=== PATIENT | female | born 1995 | race Hispanic/Latino ===

== ENCOUNTER 2022-09-12 18:44 | Emergency (ER) | payer OTHER ==
[~2022-09-12 18:44] MED LIST: Iopamidol-370 76% 500 ML MDV (1 ML CHARGE) ONE
[2022-09-12] MEDS ORDERED: Dexameth. Sod Phosp. 10 MG/ML (CHEMO USE ONLY) ONE ×2 (19:50→19:56)
[2022-09-12] MEDS ORDERED: Ketorolac Tromethamine 30 MG/ML VIAL ONE ×2 (19:50→19:56)
[2022-09-12 20:42] LABS: Hemoglobin 15.1 g/dL (12.0-16.0); Manual Diff?? YES; Mean Corpuscular HGB CONC 34.5 g/dL (32.0-36.0); Mean Corpuscular Hemoglobin 29.4 pg (27.0-31.0); Mean Corpuscular Volume 85.4 fl (78.0-98.0); Mean Platelet Volume 8.5 fL (7.4-10.4); Platelet Count 241 10x3/uL (130-400); RBC Distribution Width 14.7 % (11.5-14.5); Red Blood Cell (RBC) Count 5.13 mill/uL (4.20-5.40)
[2022-09-12 20:44] LABS: Delete Auto Diff?? YES
[2022-09-12 20:55] LABS: SARS-CoV-2 NAA Rapid Test Not Detected (NotDetected)
[2022-09-12 21:10] LABS: Band 2 % (5-11); CellaVision Operator ID lab.abc; Eosinophils 1 % (0-10); Lymphocytes 28 % (21-51); Monocytes 13 % (0-10); Neutrophil 24 % (42-75); Platelet Adequacy Comment Platelets Normal; RBC Morphology Within Normal Limits; Reactive Lymphocytes 33 % (0-10); Smudge Cells 17.3 %; Total Cell Count 104
[2022-09-12 21:14] LABS: ALT (SGPT) 684 U/L (8-55); AST (SGOT) 266 U/L (5-34); Albumin 4.3 g/dL (3.5-5.0); Alkaline Phosphatase 559 U/L (40-110); Anion Gap 16 mmol/L (10-20); BUN (Urea Nitrogen) 6 mg/dL (7.0-18.7); Bilirubin, Total 0.5 mg/dL (0.2-1.2); Calc. Creatinine Clearance 0 mL/min (70-130); Calcium 9.4 mg/dL (7.8-10.44); Carbon Dioxide 23 mmol/L (22-29); Chloride 100 mmol/L (98-107); Estimated GFR 106; Globulin 3.8 g/dL (2.4-3.5); Glucose 98 mg/dL (70-105); Potassium 3.9 mmol/L (3.5-5.1); Protein, Total 8.1 g/dL (6.0-8.3); Sodium 135 mmol/L (136-145)
[2022-09-12 22:02] LABS: Mononucleosis POSITIVE (NEGATIVE)
[2022-09-12 22:03] LABS: MONO NEGATIVE CONTROL ZONE White (Negative) (White); MONO POSITIVE CONTROL Pink Line (Positive) (PINK/RED)
[2022-09-12] MEDS ORDERED: cefTRIAXone (ROCEPHIN) 2 GM VIAL ONE (22:23)
[2022-09-12] MEDS ORDERED: cefTRIAXone (ROCEPHIN) 500 MG VIAL ONE (22:54)
[2022-09-12] MEDS ORDERED: Azithromycin 500 MG VIAL ONE (22:57)
== END 2022-09-13 00:37 | disposition home or self-care (01) ==
LOC: ERS 18:44
DX: J36 Peritonsillar abscess (principal); B27.90 Infectious mononucleosis, unspecified without complication; R00.0 Tachycardia, unspecified; H04.319 Phlegmonous dacryocystitis of unspecified lacrimal passage; R74.01 Elevation of levels of liver transaminase levels; D72.829 Elevated white blood cell count, unspecified
CPT/HCPCS: 70491; 80053; 85025; 86308; 87081; 87430; 96365; 96366; 96367; 96372; J0456; J0696; J1100; J1885; Q9967